=== PATIENT | male | born 1990 | race African-American/Black ===

== ENCOUNTER 2024-10-12 17:15 | Emergency (ER) | payer BC, SELFPAY ==
--- NOTE | 2024-10-12 17:37 | ED.EYEPROB ---
HPI - Eye Problem General Chief complaint: Eye Problems Stated complaint: EYE REDNESS Time Seen by Provider: 10/12/24 17:37 Source: patient Mode of arrival: ambulatory Limitations: no limitations History of Present Illness HPI Narrative: 33-year-old male presents with complaint of redness and irritation to left eye for 3 days. Started after playing outside with kids, thought by a bug flew into his eye and began rubbing at eye. No pain or photophobia. Reports intermittent goopy drainage. No vision changes. All systems reviewed and negative except as noted above. Related Data Allergies Allergy/AdvReac Type Severity Reaction Status Date / Time No Known Allergies Allergy Unverified 05/31/16 00:04 Review of Systems Review of Systems: CONSTITUTIONAL: Denies fever, chills, or sweats. EYES: Denies visual changes reports left eye redness, irritation, discharge. ENT: Denies rhinorrhea, congestion, sore throat, or otalgia. CARDIOVASCULAR: Denies chest pain, palpitations, or edema. RESPIRATORY: Denies cough or dyspnea. GASTROINTESTINAL: Denies abdominal pain, nausea, vomiting, or diarrhea. GENITOURINARY: Denies dysuria or hematuria. SKIN: Denies rash or itching. MUSCULOSKELETAL: Denies back pain, joint pain, or myalgia. NEUROLOGIC: Denies headache, numbness, or weakness. PSYCHIATRIC: Denies anxiety or depression. All other systems reviewed are negative, except as documented in HPI. PMFSH Comments At time of signature, agree with nursing past medical, surgical, social and family history. There is no relevant family history pertinent to the presenting complaint. Exam Narrative: GENERAL: This is a well-nourished, well-developed patient, in no apparent distress. HEAD: normocephalic, atraumatic. EYES: PERRL. Left sclera and conjunctiva erythematous and injected. Yellow ropey drainage to left eye. Right eye is normal. Vision is grossly intact. EARS: External ears normal NOSE: External nose normal NECK: Neck supple, non-tender without lymphadenopathy, masses or thyromegaly. CARDIOVASCULAR: Regular rate and rhythm without murmurs, gallops, or rubs. RESPIRATORY: Clear to auscultation. Breath sounds equal bilaterally. No wheezes, rales, or rhonchi. SKIN: warm, Dry, intact with no suspicious lesions or rash, good texture and turgor. NEURO: awake, alert, and oriented to person, place and time. There were no obvious focal neurologic abnormalities. EXTREMITIES: No joint tenderness, effusion, or edema noted. Course Course Level of Care: Express Care Visit Vital Signs Vital signs: Vital Signs Temperature 36.7 C 10/12/24 17:39 Pulse Rate 83 10/12/24 17:39 Respiratory Rate 16 10/12/24 17:39 Blood Pressure 145/84 H 10/12/24 17:39 Pulse Oximetry 100 10/12/24 17:39 Temperature 36.7 C 10/12/24 17:39 Pulse Rate 83 10/12/24 17:39 Respiratory Rate 16 10/12/24 17:39 Blood Pressure 145/84 H 10/12/24 17:39 Pulse Oximetry 100 10/12/24 17:39 Reviewed MDM - Eye Problem MDM Narrative Medical decision making narrative: Will treat left eye symptoms with erythromycin ointment. Recommend follow up with medical sales specialist if not improving. Discharge Plan Discharge Clinical Impression: Acute bacterial conjunctivitis of left eye Patient Disposition: Home Condition: Stable Instructions: Antibiotic Form, Erythromycin (Into the eye), Conjunctivitis (ED) Additional Instructions: Place antibiotic ointment as prescribed. May use an [id number] moisturizing eye drops as needed for eye irritation. Follow-up with an medical sales specialist if symptoms are not improving. Patient Language: [place] Prescriptions: New erythromycin 5 mg/gram (0.5 %) ointment 1 applic LEFT EYE QID 10 Days Qty: 3.5 0RF Follow-up/Referrals: PHYSICIAN,ASSOCIATE PROGRAM MANAGER [Primary Care Provider] - Time of Disposition: 17:44
[2024-10-12 17:39] VITALS: BP 145/84; PULSE 83; RESP 16; TEMP 36.7; O2SAT 100
== END 2024-10-12 17:50 | disposition home or self-care (01) ==
PROVIDERS: Emergency Provider Nurse Practitioner Family
DX: H10.32 Unspecified acute conjunctivitis, left eye (principal)
CPT/HCPCS: 99213; G0463